=== PATIENT | female | born 1970 | race African-American/Black ===

== ENCOUNTER 2019-09-10 08:07 | Emergency (ER) | payer OTHER ==
[2019-09-10 08:15] VITALS: BMI 21.2
[2019-09-10] MEDS ORDERED: SODIUM CHLORIDE 1,000 ML IV STA ×2 (08:46→10:12)
[2019-09-10] MEDS ORDERED: ALBUTEROL SO4 0.083% IH SOL 2.5 MG/3 ML VIAL.NEB. NEB ONE (08:46)
[2019-09-10] MEDS ORDERED: FAMOTIDINE 20 MG/50 ML IVPB 20 MG/50 ML MG IVPB ONE ×2 (08:46→09:00)
[2019-09-10 09:47] LABS: BASO % 1.1 % (0-2.0); EOS % 0.7 % (0-4.5); HEMATOCRIT 38.5 % (32.4-45.2); HEMOGLOBIN 12.3 GM/dL (10.7-15.3); LYMPH % 36.3 % (8-40); MCH 24.8 pg (25.7-33.7); MEAN CELL VOLUME 77.4 fl (80-96); MEAN PLT VOLUME 11.2 fl (7.5-11.1); MONO % 10.3 % (3.8-10.2); NEUT % 51.6 % (42.8-82.8); PLATELET COUNT 153 K/MM3 (134-434); RBC 4.97 M/mm3 (3.60-5.2); RDW 14.1 % (11.6-15.6); WHITE BLOOD COUNT 7.8 K/mm3 (4.0-10.0)
[2019-09-10] MEDS ORDERED: ONDANSETRON 4 MG/2 ML VIAL IVPUSH ONE (10:08)
[2019-09-10] MEDS ORDERED: ONDANSETRON 4 MG/2 ML VIAL ONE (10:14)
[2019-09-10 10:38] LABS: ALBUMIN 3.8 g/dl (3.4-5.0); BILIRUBIN,TOTAL 0.4 mg/dL (0.2-1); BLOOD UREA NITROGEN 5.8 mg/dL (7-18); CALCIUM 9.1 mg/dL (8.5-10.1); CREATININE 0.7 mg/dL (0.55-1.3); MAGNESIUM 2.4 mg/dL (1.8-2.4); POTASSIUM 3.4 mmol/L (3.5-5.1); TOT PROT 7.3 g/dl (6.4-8.2)
[2019-09-10] MEDS ORDERED: POTASSIUM CHLORIDE TABS 20 MEQ TABLET.ER (FP) PO ONE ×2 (10:51→11:34)
--- NOTE | 2019-09-10 10:53 | PDOC ---
Documentation entered by Marilyn Real SCRIBE, acting as scribe for Aaron Ochoa MD. Aaron Ochoa MD: This documentation has been prepared by the Addie jackson Adrianna, SCRIBE, under my direction and personally reviewed by me in its entirety. I confirm that the documentation accurately reflects all work, treatment, procedures, and medical decision making performed by me. History of Present Illness - General Chief Complaint: Vomiting/Diarrhea Stated Complaint: COUGH Time Seen by Provider: 09/10/19 08:30 - History of Present Illness Initial Comments: The patient is a 49 year old female, with no significant PMH, who presents to the ED for evaluation of vomit, diarrhea, and congestion for 7 days. Patient notes she has been experiencing cold symptoms for a week. She complains of nausea and multiple episodes of white mucous vomit (2x today), noting she has been unable to keep anything down. Patient reports numerous episodes of diarrhea , which are loose and slimy in nature (4x today). She states that she feels congested in her chest, with a productive cough of green/yellow sputum. Patient denies any recent travel, but notes her daughter has been sick with the same symptoms and was seen in the ER yesterday. She has tried mucinex without any relief of symptoms. Denies fever, chills, chest pain, SOB, constipation, dysuria, hematuria, abdominal pain. Allergies: NKA, NKDA Surgical History: None reported Social History: Current everyday smoker (1 pack per week). Denies EtOH or illicit drug use PCP: Dr. Carter Past History - Past Medical History Allergies/Adverse Reactions: Allergies Allergy/AdvReac Type Severity Reaction Status Date / Time No Known Allergies Allergy Verified 09/10/19 08:11 Home Medications: Ambulatory Orders Albuterol Sulfate Inhaler - [Ventolin HFA Inhaler -] 1 - 2 inh PO Q4H #1 inhaler 09/10/19 Ondansetron [Zofran *Odt*] 4 mg SL TID #21 od.tablet 09/10/19 COPD: No - Psycho Social/Smoking Cessation Hx Smoking History: Current every day smoker Have you smoked in the past 12 months: Yes Number of Cigarettes Smoked Daily: 5 Information on smoking cessation initiated: Yes Hx Alcohol Use: No Drug/Substance Use Hx: No Review of Systems - Review of Systems Comments:: CONSTITUTIONAL: No fever, no chills, no fatigue EYES: No visual changes ENT: +Chest congestion. No ear pain, no sore throat CARDIOVASCULAR: No chest pain, no palpitations RESPIRATORY: +Cough productive of yellow/green sputum. No SOB GI: +Nausea. +Vomit. +Diarrhea. No abdominal pain, no constipation. GENITOURINARY: No dysuria, no frequency, no hematuria MUSKULOSKELETAL: No back pain, no joint pain, no myalgias SKIN: No rash NEURO: No headache *Physical Exam - Vital Signs Last Vital Signs Temp Pulse Resp BP Pulse Ox 98.1 F 95 H 16 130/88 98 09/10/19 08:46 09/10/19 08:11 09/10/19 08:11 09/10/19 08:11 09/10/19 08:11 - Physical Exam CONSTITUTIONAL: Well-appearing; well-nourished; in no apparent distress HEAD: Normocephalic; atraumatic EYES: PERRL; EOM intact. No scleral icterus. ENMT: External appears normal; normal oropharynx NECK: Supple; non-tender; no cervical lymphadenopathy CARD: Normal S1, S2; no murmurs, rubs, or gallops RESP: +Diffuse rhonchi and bronchial breathing bilaterally. Normal chest excursion with respiration; no wheezes or rales ABD: Soft, non-distended; non-tender; no palpable organomegaly, no palpable hernias EXT: Normal ROM in all four extremities; non-tender to palpation; distal pulses intact SKIN: Warm, dry, no rash NEURO: No focal neurological deficiencies. Heart Score/ECG Review - ECG Impressions Comment:: EKG performed at 9:38 on 09/10/2019 demonstrates rate of 78bpm, normal sinus rhythm. Prolonged QT. Possible left atrial enlargement. ED Treatment Course - LABORATORY CBC & Chemistry Diagram: 09/10/19 09:07 09/10/19 09:07 - ADDITIONAL ORDERS Additional order review: Laboratory Results 09/10/19 09:07 Sodium 139 Potassium 3.4 L Chloride 103 Carbon Dioxide 27 Anion Gap 9 BUN 5.8 L Creatinine 0.7 Est GFR (CKD-EPI)AfAm 117.09 Est GFR (CKD-EPI)NonAf 101.02 Random Glucose 84 Calcium 9.1 Magnesium 2.4 Total Bilirubin 0.4 AST 35 ALT 28 Alkaline Phosphatase 63 Total Protein 7.3 Albumin 3.8 09/10/19 09:07 RBC 4.97 MCV 77.4 L MCHC 32.0 RDW 14.1 MPV 11.2 H Neutrophils % 51.6 Lymphocytes % 36.3 Monocytes % 10.3 H Eosinophils % 0.7 Basophils % 1.1 - RADIOLOGY Radiology Studies Ordered: Category Date Time Status CHEST PA & LAT [RAD] Stat Radiology 09/10/19 10:00 Completed Radiograph Interpretation: EXAM#: TYPE/EXAM: RESULT: [id number] RAD/CHEST PA LAT Chest: Cough. Shortness of breath Impression: Minimal right base atelectasis. No comparison studies. Reported By: Carlos Viveros MD 09/10/19 10:48 - Medications Given in the ED: ED Medications Discontinued Medications Generic Name Dose Route Start Last Admin Trade Name Freq PRN Reason Stop Dose Admin Albuterol Sulfate 1 amp 09/10/19 08:46 09/10/19 09:19 Ventolin 0.083% Nebulizer Soln - NEB 09/10/19 08:47 1 amp ONCE ONE Administration Famotidine/Sodium Chloride 20 mg in 50 mls @ 100 mls/hr 09/10/19 08:46 09:19 Pepcid 20 Mg Premixed Ivpb - IVPB 09/10/19 09:15 100 mls/hr ONCE ONE Administration Sodium Chloride 1,000 mls @ 1,000 mls/hr 09/10/19 08:46 09/10/19 09:19 Normal Saline - IV 09/10/19 09:45 1,000 mls/hr ASDIR STA Administration Ondansetron HCl 4 mg 09/10/19 10:08 09/10/19 10:20 Zofran Injection IVPUSH 09/10/19 10:09 4 mg ONCE ONE Administration Medical Decision Making - Medical Decision Making 09/10/19 10:52 Patient is a 49-year-old female with history of smoking who presents with 7 days of viral syndrome-like symptoms with a coarse, productive cough, numerous episodes of nonbloody, nonbilious vomiting and loose watery stools. In the ER, patient is awake and alert, afebrile, nontoxic-appearing. Vital signs are noted. Initial evaluation revealed diffuse rhonchi and bronchial breathing bilaterally. Chest x-ray revealed right lower lobe atelectasis but no obvious infiltrate or effusion. Patient received albuterol with complete resolution of advantageous lung sounds. I suspect reactive airway disease precipitated by an acute viral infection. Serial abdominal exams reveal no focal tenderness. Patient's electrolytes revealed minimal hypokalemia of 3.4. Will administer K- Dur. We will continue to hydrate. Will reassess. 09/10/19 13:00 Patient reassessed. Patient is resting comfortably, reports significant improvement in her symptoms. Patient has had no additional episodes of vomiting or diarrhea. Patient currently tolerates p.o. Serial abdominal exams revealed no focal tenderness. I do not suspect acute abdomen at this time. Will discharge with albuterol MDI and antiemetic therapy with outpatient follow- up. Discharge - Discharge Information Problems reviewed: Yes Clinical Impression/Diagnosis: Acute bronchitis Qualifiers: Bronchitis organism: unspecified organism Qualified Code(s): J20.9 - Acute bronchitis, unspecified Nausea & vomiting Qualifiers: Vomiting type: unspecified Vomiting Intractability: non-intractable Qualified Code(s): R11.2 - Nausea with vomiting, unspecified Condition: Stable Disposition: HOME - Additional Discharge Information Prescriptions: Albuterol Sulfate Inhaler - [Ventolin HFA Inhaler -] 1 - 2 inh PO Q4H #1 inhaler Ondansetron [Zofran *Odt*] 4 mg SL TID #21 od.tablet - Follow up/Referral Referrals: Kd Carter [Primary Care Provider] - - Patient Discharge Instructions Patient Printed Discharge Instructions: DI for Acute Bronchitis, DI for Vomiting -- Adult, DI for Diarrhea and Traveler's Diarrhea -- Adult - Post Discharge Activity
[2019-09-10 13:24] VITALS: BP 136/89; PULSE 71; TEMP 98.7
--- NOTE | 2019-09-10 15:37 | EKG ---
Test Reason : Blood Pressure : / mmHG Vent. Rate : 078 BPM Atrial Rate : 078 BPM P-R Int : 120 ms QRS Dur : 086 ms QT Int : 422 ms P-R-T Axes : 068 -21 025 degrees QTc Int : 481 ms NORMAL SINUS RHYTHM POSSIBLE LEFT ATRIAL ENLARGEMENT PROLONGED QT ABNORMAL ECG NO PREVIOUS ECGS AVAILABLE Confirmed by MD Schroeder Edward ([id number]) on 09/10/2019 3:36:38 PM Referred By: Confirmed By:Italo Schroeder MD
== END 2019-09-10 13:40 | disposition home or self-care (01) ==
LOC: JER 08:07
PROC: 3E0337Z Introduction of Electrolytic and Water Balance Substance into Peripheral Vein, Percutaneous Approach (ICD-10-PCS; principal; 2019-09-10)
PROC: 3E033GC Introduction of Other Therapeutic Substance into Peripheral Vein, Percutaneous Approach (ICD-10-PCS; 2019-09-10)
PROC: 3E0F7GC Introduction of Other Therapeutic Substance into Respiratory Tract, Via Natural or Artificial Opening (ICD-10-PCS; 2019-09-10)
DX: J20.9 Acute bronchitis, unspecified (principal); R11.2 Nausea with vomiting, unspecified; F17.210 Nicotine dependence, cigarettes, uncomplicated
CPT/HCPCS: 36415; 71046-TC-FY; 80053; 83735; 85025; 93005; 93010; 94640; 96361; 96365; 96375; 99283-25; J7030